=== PATIENT | male | born 2000 | race Hispanic/Latino ===

== ENCOUNTER 2018-04-18 17:15 | Emergency (ER) | payer SELFPAY ==
[2018-04-18 17:32] VITALS: BP 121/65; PULSE 64; RESP 16; TEMP 98.5; O2SAT 99
== END 2018-04-18 17:57 | disposition left against medical advice (07) ==
LOC: ED 17:15
DX: Z02.89 Encounter for other administrative examinations (principal); T14.90XA Injury, unspecified, initial encounter